=== PATIENT | female | born 1950 | race Caucasian/White ===

== ENCOUNTER 2018-12-07 05:58 | Day surgery (SDC) | payer MEDICARE, OTHER ==
--- NOTE | 2018-12-05 14:24 | HP ---
DATE OF SURGERY: 12/07/2018 ANTICIPATED PROCEDURE: EGD possible dilatation. HISTORY OF PRESENT ILLNESS: The patient has difficulty swallowing, difficulty swallowing pills. PAST MEDICAL HISTORY: ALLERGIES: RAGWEED. DUST. CATS. NKDA. MEDICATIONS: None. PAST SURGICAL HISTORY: EGD. D&C. One cataract. SOCIAL HISTORY: Negative. FAMILY HISTORY: Negative. REVIEW OF SYSTEMS: Chronic sinus allergies. Neck, back, left knee. PHYSICAL EXAMINATION: VITAL SIGNS: Normal. CHEST: Clear. COR: Regular. NECK: No adenopathy. IMPRESSION: Dysphagia. PLAN: EGD, dilatation.
[2018-12-07] MEDS ORDERED: DIPRIVAN 200 MG/20 ML IV ONE (05:59)
[2018-12-07] MEDS ORDERED: Lactated Ringers 1,000 ML IV SCH (06:30)
[2018-12-07 09:47] VITALS: O2SAT 97
[2018-12-07 10:25] VITALS: BP 123/62; PULSE 70
--- NOTE | 2018-12-08 07:49 | OP ---
SURGERY DATE/TIME: 12/07/2018 0835 PREOPERATIVE DIAGNOSIS: Dysphagia. POSTOPERATIVE DIAGNOSIS: Esophageal stricture size 36. PROCEDURE: EGD with Horton dilatation to size 46. SURGEON: Brandon Chau M.D. ANESTHESIA: MAC. COMPLICATIONS: None. CONDITION: Stable. INDICATION: A patient requiring evaluation for dysphagia. DESCRIPTION OF PROCEDURE: The patient is taken to the endoscopy suite. Left lateral decubitus position. MAC sedation provided. Scope introduced. Fundus, body, antrum, pylorus, duodenal bulb, second portion. Scope withdrawn back upon itself. Gastroesophageal junction satisfactory from below. Scope withdrawn. There was a stricture in the distal esophageal gastric area. Size 46 Horton was chosen. It was very lightly teased through the gastroesophageal junction and dilated to size 46 without any issue. The scope was reintroduced. There was some rawness to the distal esophageal area on the left lateral wall and a few drops of blood. Scope withdrawn. The patient tolerated the procedure satisfactorily. She was put on 24 hour temperature monitor. Full liquids for 24 hours. She will return to our office on Tuesday and she was given 48 hours of amoxicillin clavulanic. Specific instructions to .
== END 2018-12-07 10:25 | disposition home or self-care (01) ==
LOC: SDC 05:58
PROVIDERS: ATTEND Surgery
DX: K22.2 Esophageal obstruction (principal); R13.10 Dysphagia, unspecified
CPT/HCPCS: J2704